=== PATIENT | male | born 1970 | race Caucasian/White ===

== ENCOUNTER → 2017-12-12 11:56 | Outpatient (POV) | payer MEDICAID, SELFPAY | PROVIDERS: Visit Provider Dentist | DX: Z00.00 Encounter for general adult medical examination without abnormal findings (principal) ==

== ENCOUNTER → 2017-12-26 12:59 | Outpatient (POV) | payer MEDICAID, SELFPAY | PROVIDERS: Visit Provider Dentist | DX: Z00.00 Encounter for general adult medical examination without abnormal findings (principal) ==